=== PATIENT | male | born 1980 | race Caucasian/White ===

== ENCOUNTER 2020-10-16 18:01 | Emergency (ER) | payer OTHER, SELFPAY ==
--- NOTE | ~2020-10-16 | XR_ITS ---
XR femur LT min 2V DATE: 10/16/2020 18:34 INDICATION: Left hip and knee pain TECHNIQUE: AP and lateral views of left femur COMPARISON: None FINDINGS: No fracture or dislocation, periosteal reaction or bone destruction of the left femur. Norm al alignment of the left hip and knee joints. IMPRESSION: Negative Reviewed, dictated and finalized at location A. IMPRESSION: Negative
--- NOTE | ~2020-10-16 | XR_ITS ---
XR knee LT min 4V DATE: 10/16/2020 19:30 INDICATION: Left knee pain. No injury. TECHNIQUE: 4 views COMPARISON: None FINDINGS: No fracture or dislocation or joint effusion. No periosteal reaction or bone destruction. J oint spaces are well preserved. No radiopaque intra-articular loose body or chondrocalcinosis. IMPRESSION: Negative Reviewed, dictated and finalized at location A. IMPRESSION: Negative
[2020-10-16 18:13] VITALS: BP 128/82; PULSE 88; RESP 16; TEMP 36.5; O2SAT 100
[2020-10-16 18:28] VITALS: BP 128/82; PULSE 88; RESP 18; TEMP 36.5; O2SAT 100
--- NOTE | 2020-10-16 19:25 | ED.LOWEXIN ---
HPI - Extremity Injury (Lower) General Chief Complaint: Extremity Injury, Lower Stated Complaint: leg pain Time Seen by Provider: 10/16/20 18:32 Source: patient Mode of arrival: ambulatory Limitations: no limitations History of Present Illness HPI Narrative: This is a 40 year old male that presents to the ER for left knee pain present over the last couple of weeks. Unsure of any certain injury or trauma. The pain has now started to radiate up into the left hip. Worse with weight bearing and relieved with rest. Reports a constant aching pain. He has been taking anti-inflammatories with some relief. Denies fever, erythema or edema. Related Data Allergies Allergy/AdvReac Type Severity Reaction Status Date / Time No Known Allergies Allergy Unverified 10/16/20 18:45 Review of Systems Review of Systems: CONSTITUTIONAL: Denies fever SKIN: Denies rash MUSCULOSKELETAL: Reports joint pain, and myalgia. NEUROLOGIC: Denies numbness All systems reviewed & are unremarkable except as noted in HPI and below PMFSH Family History Family History (Updated 10/24/13 @ 07:13 by DOCTOR UNKNOWN) Father Hypertension Grandparent Carcinoma of colon Other Family history of congestive heart failure Social History Social History Smoking status: Heavy tobacco smoker Alcohol intake: current Exam Narrative: GENERAL: Well-appearing, well-nourished, and in no acute distress. HEAD: Normocephalic, atraumatic. EYES: EOMI. EXTREMITIES: Normal range of motion. No edema, erythema or obvious deformity. Normal DP pulses. Normal sensation SKIN: Warm, dry, no rash. NEURO: No focal deficits. Alert and oriented x3. PSYCH: Normal mood and affect Course Vital Signs Vital signs: Vital Signs Temperature 97.7 F 10/16/20 18:13 Pulse Rate 88 10/16/20 18:13 Respiratory Rate 16 10/16/20 18:13 Blood Pressure 128/82 10/16/20 18:13 Pulse Oximetry 100 10/16/20 18:13 Temperature 97.7 F 10/16/20 18:28 Pulse Rate 88 10/16/20 18:28 Respiratory Rate 18 10/16/20 18:28 Blood Pressure 128/82 10/16/20 18:28 Pulse Oximetry 100 10/16/20 18:28 MDM - Extremity Injury (Lower) MDM Narrative Medical decision making narrative: Patient presents the emergency department for left knee pain radiating into the left hip. No recent injury or trauma. Left knee and femur x-rays are without acute osseous abnormalities. CBC and metabolic panel without concerning findings. Patient was updated on case findings. Reports improvement with Toradol. Instructed to rest, ice and take [id number] pain medication as needed. He is to follow-up with orthopedics. He was given warnings to return to the ER Lab Data Attestation: I reviewed the patient's lab results. Result diagrams: 10/16/20 19:52 10/16/20 19:52 Labs: Lab Results 10/16/20 10/16/20 Range/Units 19:52 19:52 WBC 10.7 H (4.5-10.0) K/mm3 RBC 4.34 L (4.6-6.20) M/mm3 Hgb 13.9 L (14.0-18.0) g/dL Hct 41.9 L (42.0-52.0) % MCV 96.5 (80-100) fl MCH 32.0 (26-34) pg MCHC 33.2 (32-36) g/dl RDW 13.2 (11.5-14.5) % Plt Count 193 (150-375) k/mm3 MPV 10.4 (7.4-10.4) fl Immature Gran % (Auto) 0.3 (0-0.5) % Neut % (Auto) 54.9 (45.5-73.1) % Lymph % (Auto) 33.1 (18.3-44.2) % [place] % (Auto) 7.7 (2.6-8.5) % Eos % (Auto) 3.7 (0-4.4) % Baso % (Auto) 0.3 (0.2-1.2) % Lymph # (Auto) 3.54 H (0.9-3.2) K/mm3 [place] # (Auto) 0.8 H (0.1-0.6) K/mm3 Eos # (Auto) 0.4 H (0-0.3) K/mm3 Baso # (Auto) 0.0 (0.0-0.1) K/mm3 Abs Immat Gran (auto) 0.03 (0.00-0.031) K/mm3 Absolute Neuts (auto) 5.9 (1.3-6.7) K/mm3 Absolute Nucleated RBC 0.0 (0.0-0.012) K/mm3 Nucleated RBC % 0.0 (0.0-0.2) % Sodium 138 (137-145) mmol/L Potassium 4.1 (3.4-5.0) mmol/L Chloride 107 (98-107) mmol/L Carbon Dioxide 24 (22-30) mmol/L Anion Gap 7 L (8-16) mmol/L BUN 21 H (9-20) mg/dL Creatin
[2020-10-16] MEDS: KETOROLAC (*BKC) 60 MG/2 ML VIAL IM (19:53)
[2020-10-16 19:58] LABS: Basophils Percent Auto 0.3 % (0.2-1.2); Eosinophils Absolute Auto 0.4 K/mm3 (0-0.3); Eosinophils Percent Auto 3.7 % (0-4.4); Hematocrit 41.9 % (42.0-52.0); Hemoglobin 13.9 g/dL (14.0-18.0); Immature Granulocyte Absolute 0.03 K/mm3 (0.00-0.031); Immature Granulocyte Percent A 0.3 % (0-0.5); Lymphocytes Absolute Auto 3.54 K/mm3 (0.9-3.2); Lymphocytes Percent Auto 33.1 % (18.3-44.2); Mean Corpuscular HGB Conc 33.2 g/dl (32-36); Mean Corpuscular Volume 96.5 fl (80-100); Mean Platelet Volume 10.4 fl (7.4-10.4); Monocytes Absolute Auto 0.8 K/mm3 (0.1-0.6); Monocytes Percent Auto 7.7 % (2.6-8.5); Neutrophils Absolute Auto 5.9 K/mm3 (1.3-6.7); Neutrophils Percent Auto 54.9 % (45.5-73.1); Platelet Count Result 193 k/mm3 (150-375); Red Blood Count 4.34 M/mm3 (4.6-6.20); Red Cell Distribution Width 13.2 % (11.5-14.5); White Blood Count 10.7 K/mm3 (4.5-10.0)
[2020-10-16 20:15] LABS: Anion Gap 7 mmol/L (8-16); Blood Urea Nitrogen 21 mg/dL (9-20); Calcium 9.3 mg/dL (8.4-10.2); Carbon Dioxide 24 mmol/L (22-30); Chloride 107 mmol/L (98-107); Creatine Kinase 179 U/L (55-170); Estimated CRCL calculation 112 ml/min; Estimated Glomerular Filt Rate > 60; Glucose 105 mg/dL (65-110); Magnesium 2.3 mg/dL (1.6-2.3); Potassium 4.1 mmol/L (3.4-5.0); Sodium 138 mmol/L (137-145)
[2020-10-16 20:57] VITALS: BP 117/72; PULSE 61; RESP 16; O2SAT 100
[2020-10-16 21:38] VITALS: BP 117/72; PULSE 61; RESP 16; O2SAT 100
== END 2020-10-16 21:39 | disposition home or self-care (01) ==
PROVIDERS: Physician Assistant; Emergency Provider Emergency Medicine
DX: M25.562 Pain in left knee (principal); F17.200 Nicotine dependence, unspecified, uncomplicated
CPT/HCPCS: 36415; 73552; 73564; 80048; 82550; 83735; 85025; 96372; 99284; J1885

== ENCOUNTER 2020-10-17 14:56 | Emergency (ER) | payer OTHER, SELFPAY ==
--- NOTE | ~2020-10-17 | CT_ITS ---
EXAMINATION: CT lumbar spine wo con DATE: 10/17/2020 16:35 INDICATION: Left leg radicular pain. TECHNIQUE: Computed tomography (CT) of the lumbar spine was performed without intravenous contrast. A utomated exposure control and iterative reconstruction technique were employed. The dose-length produ ct was 659.59 mGy-cm. COMPARISON: Lumbar spine MRI 03/19/2016 FINDINGS: Bone alignment is normal. There are changes of anterior and posterior fusion procedures at L4-L5 with healed interbody bone graft and pedicle screws. Vertebral body heights are normal. There i s mildly decreased disc height at L3-L4 and L5-S1. The following disc levels are specifically discuss ed: L1-L2: The disc does not extend beyond the endplate margin. There is mild bilateral facet joint osteo arthritis. There is no neural foraminal stenosis. There is no central canal stenosis. L2-L3: The disc does not extend beyond the endplate margin. There is mild bilateral facet joint osteo arthritis. There is no neural foraminal stenosis. There is no central canal stenosis. L3-L4: The disc is bulging. There is mild bilateral facet joint osteoarthritis. There is mild bilater al neural foraminal stenosis. There is mild central canal stenosis. L4-L5: There is mild left facet joint hypertrophy. There is mild right neural foraminal stenosis with posterior decompression. There is no central canal stenosis. L5-S1: The disc is bulging. There is mild bilateral facet joint osteoarthritis. There is mild bilater al neural foraminal stenosis. There is mild central canal stenosis. IMPRESSION: 1. Mild lumbar spondylosis. 2. Anterior and posterior fusion procedures at L4-L5. Reviewed, dictated and finalized at location A.
[2020-10-17 14:57] VITALS: BP 138/79; PULSE 95; RESP 14; TEMP 36.3; O2SAT 99
[2020-10-17] MEDS: KETOROLAC (*BKC) 60 MG/2 ML VIAL IM (15:30)
[2020-10-17 16:00] VITALS: TEMP 36.3
--- NOTE | 2020-10-17 16:38 | ED.LOWEXIN ---
HPI - Extremity Injury (Lower) General Chief Complaint: Extremity Injury, Lower Stated Complaint: lle pain Time Seen by Provider: 10/17/20 15:13 Source: patient, RN notes reviewed and old records reviewed Mode of arrival: ambulatory Limitations: no limitations History of Present Illness HPI Narrative: This is a 40 year old male who presents for evaluation of left leg pain. He states starting 2-3 weeks ago he developed pain from his left knee to his left hip. This pain has been constant, and he describes pain has throbbing. He states it does not seem to be worse with palpation or ambulation. He denies numbness, tingling or weakness. He denies nausea, vomiting or fever. He was prescribed flexeril and he states this did not help his pain. Pain is 6/10. Related Data Allergies Allergy/AdvReac Type Severity Reaction Status Date / Time No Known Allergies Allergy Unverified 10/16/20 18:45 Review of Systems Review of Systems: All systems reviewed & are unremarkable except as noted in HPI and below PMFSH Surgical History Surgical History (Updated 10/17/20 @ 17:41 by Georgina Griffiths MD) History of back surgery Family History Family History (Updated 10/24/13 @ 07:13 by DOCTOR UNKNOWN) Father Hypertension Grandparent Carcinoma of colon Other Family history of congestive heart failure Social History Social History Smoking status: Heavy tobacco smoker Alcohol intake: current Exam Const: General: no acute distress and alert Orientation/consciousness: patient oriented x3 Eyes: EOM: EOMs intact bilaterally Resp: Effort & Inspection: normal respiratory effort and no retractions Auscultation: clear to auscultation bilaterally Cardio: Rate: regular rate Rhythm: regular rhythm Heart sounds: no murmurs GI: GI Palp: Yes Soft to palpation, No Tenderness to palpation present (GI) and No Guarding due to palpation present (GI) Auscultation: normal bowel sounds Neuro: General: patient oriented x3, moves all extremities, no focal motor deficits and CN's II-XI intact bilaterally Speech: normal speech Gait exam (Neuro): Normal gait present Extrem: General: normal to inspection Psych: Mental Status: mental status grossly normal Affect: normal affect Course Reevaluation(s) Reevaluation #1: I discussed with patient I reviewed labs and imaging from yesterday. He has no joint swelling or redness, no deformity to his leg. I think patient may be having radicular pain. Date: 10/17/20 Time: 17:41 Vital Signs Vital signs: Vital Signs Temperature 97.4 F L 10/17/20 14:57 Pulse Rate 95 10/17/20 14:57 Respiratory Rate 14 10/17/20 14:57 Blood Pressure 138/79 10/17/20 14:57 Pulse Oximetry 99 10/17/20 14:57 Temperature 97.4 F L 10/17/20 16:00 Pulse Rate 95 10/17/20 14:57 Respiratory Rate 14 10/17/20 14:57 Blood Pressure 138/79 10/17/20 14:57 Pulse Oximetry 99 10/17/20 14:57 MDM - Extremity Injury (Lower) Imaging Data Radiologist's impression: ITS Impressions Lumbar Spine CT 10/17/20 16:37 IMPRESSION: 1. Mild lumbar spondylosis. 2. Anterior and posterior fusion procedures at L4-L5. Discharge Plan Discharge Clinical Impression: Left leg pain, Radicular leg pain Patient Disposition: Home, Self-Care Condition: Stable Instructions: Antibiotic Form, Lumbar Disc Herniation (ED), Meralgia Paresthetica (ED) Additional Instructions: Today you were seen for left side thigh pain. This may be due to pinched nerve. Follow up with a primary care provider. You can follow up with there referred from other visit as well. Prescriptions: New prednisone 10 mg Tablets,Dose Pack See Taper mg PO DAILY 12 Days Qty: 42 RF: 0 hydrocodone-acetaminophen 5-325 mg tablet 1 tablet PO Q6H PRN (Reason: pain) Qty: 10 RF: 0 ibuprofen 800 mg tablet 800 mg PO Q6H PRN (Reason: pain) Qty: 14 RF: 0 No Action cyclobenzaprine 10 mg tablet 10
== END 2020-10-17 17:59 | disposition home or self-care (01) ==
PROVIDERS: Emergency Provider General Practice
DX: M79.605 Pain in left leg (principal)
CPT/HCPCS: 72131; 96372; 99284; J1885

== ENCOUNTER 2023-04-12 14:44 | Outpatient (CLI) | payer OTHER, SELFPAY ==
--- NOTE | ~2023-04-12 | XR_ITS ---
XR shoulder RT min 2V DATE: 04/12/2023 15:11 INDICATION: Right shoulder pain TECHNIQUE: 4 views COMPARISON: None FINDINGS: No fracture or dislocation, periosteal reaction or bone destruction or abnormal soft tissue calcification is detected. IMPRESSION: Negative Reviewed, dictated and finalized at location B. RICT LEADER IMPRESSION: Negative
--- NOTE | ~2023-04-12 | XR_ITS ---
XR cervical spine 4-5V DATE: 04/12/2023 15:11 INDICATION: Cervical radicular pain TECHNIQUE: AP, open-mouth, lateral, flexion and extension lateral views COMPARISON: None FINDINGS: This examination is incomplete because the C7 vertebra is not included on any of the latera l views. No fracture or dislocation or locked facet or prevertebral soft tissue swelling or the lateral flexio n-extension are noted at C1-C6. There is mild degenerative disc disease at C5-6. IMPRESSION: Incomplete examination seminal C7 is not demonstrated Mild degenerative disc disease at C5-6 Reviewed, dictated and finalized at location B. AGE LINER
== END 2023-04-12 14:45 ==
LOC: MICIMG 14:46
PROVIDERS: PCP Pain Medicine Pain Medicine; Visit Provider Pain Medicine Pain Medicine
DX: M25.511 Pain in right shoulder (principal); M54.12 Radiculopathy, cervical region; M50.322 Other cervical disc degeneration at C5-C6 level
CPT/HCPCS: 72050; 73030

== ENCOUNTER 2023-05-30 09:08 | Outpatient (CLI) | payer OTHER, SELFPAY ==
[2023-05-30 14:38] LABS: Basophils Percent Auto 0.4 % (0.2-1.2); Eosinophils Absolute Auto 0.2 K/mm3 (0-0.3); Eosinophils Percent Auto 2.5 % (0-4.4); Hematocrit 49.6 % (42.0-52.0); Hemoglobin 15.8 g/dL (14.0-18.0); Immature Granulocyte Absolute 0.03 K/mm3 (0.00-0.031); Immature Granulocyte Percent A 0.4 % (0-0.5); Lymphocytes Absolute Auto 2.38 K/mm3 (0.9-3.2); Lymphocytes Percent Auto 28.2 % (18.3-44.2); Mean Corpuscular HGB Conc 31.9 g/dl (32-36); Mean Corpuscular Hemoglobin 31.7 pg (26-34); Mean Corpuscular Volume 99.6 fl (80-100); Mean Platelet Volume 11.6 fl (7.4-10.4); Monocytes Absolute Auto 0.7 K/mm3 (0.1-0.6); Monocytes Percent Auto 7.7 % (2.6-8.5); Neutrophils Absolute Auto 5.2 K/mm3 (1.3-6.7); Neutrophils Percent Auto 60.8 % (45.5-73.1); Platelet Count Result 221 k/mm3 (150-375); Red Blood Count 4.98 M/mm3 (4.6-6.20); Red Cell Distribution Width 13.2 % (11.5-14.5); White Blood Count 8.5 K/mm3 (4.5-10.0)
[2023-05-30 14:53] LABS: Alanine Aminotransferase 47 U/L (6-50); Albumin Level 4.7 g/dL (3.5-5.1); Alkaline Phosphatase 97 U/L (38-126); Anion Gap 8 mmol/L (4-12); Aspartate Amino Transferase 84 U/L (17-59); Bilirubin,Total 0.7 mg/dL (0.2-1.3); Blood Urea Nitrogen 16 mg/dL (9-20); Carbon Dioxide 30 mmol/L (22-30); Chloride 104 mmol/L (98-107); Cholesterol 217 mg/dL (0-200); Estimated Glomerular Filt Rate > 60; Glucose 85 mg/dL (65-110); HDL Direct 56 mg/dL; Potassium 4.7 mmol/L (3.4-5.0); Sodium 142 mmol/L (137-145); Triglycerides 107 mg/dL (<150)
[2023-05-30 15:05] LABS: LDL Cholesterol Direct 124 mg/dL
[2023-05-30 17:22] LABS: Hemoglobin A1C 5.3 % (<5.7)
[2023-06-01 12:48] LABS: C-Peptide 1.51 ng/mL (0.80-3.85); Insulin Level Total 6.2 uIU/mL (<=18.4)
[2023-06-01 20:16] LABS: Apolipoprotein B 104 mg/dL (<90)
[2023-06-07 21:54] LABS: Free Insulin 4.1 uIU/mL (1.5-14.9)
== END 2023-05-30 09:09 | disposition home or self-care (01) ==
LOC: ANHGOSHLAB 09:10
PROVIDERS: PCP Internal Medicine; Visit Provider Internal Medicine
DX: E16.2 Hypoglycemia, unspecified (principal); Z13.29 Encounter for screening for other suspected endocrine disorder; Z13.0 Encounter for screening for diseases of the blood and blood-forming organs and certain disorders involving the immune mechanism; Z13.228 Encounter for screening for other metabolic disorders; Z13.220 Encounter for screening for lipoid disorders
CPT/HCPCS: 36415; 80053; 80061; 82172; 83036; 83525; 83527; 84443; 84681; 85025

== ENCOUNTER 2024-03-12 10:13 | Outpatient (CLI) | payer OTHER, SELFPAY ==
--- NOTE | ~2024-03-12 | XR_ITS ---
3 VIEWS LUMBAR SPINE Ordering provider: Sonia De Santiago MD History: . Lumbar radiculopathy . Comparison: None. FINDINGS: VERTEBRAL BODIES: No visible fracture or subluxation. Postoperative changes at the level of L4-L5. DISK SPACES: Disc spacer at the level of L4-L5. Narrowing of the disc L5-S1. SOFT TISSUES: Normal. IMPRESSION: No acute osseous abnormality lumbar spine. Postoperative changes. Reviewed, dictated and finalized at location A. [employer] OUTREACH DIRECTOR
== END 2024-03-12 10:14 | disposition home or self-care (01) ==
PROVIDERS: PCP Internal Medicine; Visit Provider Pain Medicine Pain Medicine
DX: M54.16 Radiculopathy, lumbar region (principal)
CPT/HCPCS: 72110